=== PATIENT | male | born 1930 | race Caucasian/White ===

== ENCOUNTER 2017-03-13 06:15 | Day surgery (SDC) | payer MEDICARE ==
[~2017-03-13] VITALS: Ht 172.7 cm; Wt 85.7 kg
[~2017-03-13 06:15] MED LIST: ASPI81 PO; FISH1000 PO; OMEP20CA5 PO; PRIN10TA PO
[2017-03-13] MEDS ORDERED: IOHEXOL 350 MG/ML 100 ML BTL (for Cath Lab) OTHER ONE (06:16)
[2017-03-13] MEDS ORDERED: SODIUM CHLOR 0.9% 1000 ML INJ 400 ML IV ONE (06:45)
[2017-03-13] MEDS ORDERED: ALBU0.08 NEB (06:58)
[2017-03-13] MEDS ORDERED: OMEP20TA93 PO (06:58)
[2017-03-13] MEDS ORDERED: LISI-515 PO (06:58)
[2017-03-13] MEDS ORDERED: IPRA0.02 NEB (06:58)
[2017-03-13] MEDS ORDERED: KETO2CRE TOPICAL (06:58)
[2017-03-13] MEDS ORDERED: APIX2.5T PO (06:58)
[2017-03-13] MEDS ORDERED: PRIM50TA5 PO (06:58)
[2017-03-13] MEDS ORDERED: TRIAM.1%T TOPICAL (06:58)
[2017-03-13 06:59] VITALS: BP 136/91; PULSE 68; RESP 18; TEMP 98.2; O2SAT 97
[2017-03-13] MEDS ORDERED: HEPARIN-NS/PF INJ 1,000 ML ONE ×2 (07:35→08:10)
[2017-03-13] MEDS ORDERED: MIDAZOLAM HCL 5 MG/5 ML VIAL ONE ×2 (07:35→09:10)
[2017-03-13] MEDS ORDERED: HEPARIN SODIUM - IV 10,000 UNITS/10 ML VIAL ONE (08:51)
[2017-03-13] MEDS ORDERED: ADENOSINE IV SOLN 3 MG/ML 2 ML VIAL ONE (09:18)
[2017-03-13] MEDS ORDERED: NITROGLYCERIN INJ 10 ML ONE (09:51)
[2017-03-13] MEDS ORDERED: CLOPIDOGREL 300 MG TAB ONE (09:52)
[2017-03-13] MEDS ORDERED: SODIUM CHLOR 0.9% 1000 ML INJ 1,000 ML IV SCH (09:57)
[2017-03-13] MEDS ORDERED: ATROPINE SULFATE 1 MG/ML VIAL IV PUSH PRN (10:00)
[2017-03-13] MEDS ORDERED: ONDANSETRON HCL 4 MG/2 ML VIAL IV PUSH PRN (10:00)
[2017-03-13] MEDS ORDERED: oxyCODONE/ACETAMINOPHEN 10 MG/325 MG TAB PO PRN (10:00)
[2017-03-13] MEDS ORDERED: LIDOCAINE 2% JELLY 30 ML TUBE TOP PRN (10:00)
[2017-03-13] MEDS ORDERED: oxyCODONE/ACETAMINOPHEN 5 MG/325 MG TAB PO PRN (10:00)
[2017-03-13] MEDS ORDERED: LIDOCAINE HCL 1% 50 ML VIAL INFIL PRN (10:00)
[2017-03-13] MEDS ORDERED: ACETAMINOPHEN 325 MG TAB PO PRN (10:00)
[2017-03-13] MEDS ORDERED: CLOPIDOGREL 300 MG TAB PO ONE (10:00)
[2017-03-13] MEDS ORDERED: SODIUM CHLOR 0.9% 250 ML INJ 250 ML IV PRN (10:00)
[2017-03-13] MEDS ORDERED: METOCLOPRAMIDE HCL 10 MG/2 ML VIAL IV PUSH PRN (10:00)
[2017-03-13] MEDS ORDERED: LORazepam 2 MG/ML VIAL IV PUSH PRN (10:00)
[2017-03-13] MEDS ORDERED: MISC INFORMATION XX ONE (10:00)
[2017-03-13] MEDS ORDERED: ASPI-516 CHEW (10:01)
--- NOTE | 2017-03-13 10:07 | CATHPROC ---
[facility] HIS Report Study Information Study Number Admission Scheduled Start Study Start [id number] Mar 13 2017 6:15AM 03/13/2017 Mar 13 2017 7:56AM [place] [facility] Cardiac Catheterization Admit Source Facility Department Other [facility] - Industrial Real Estate Agent Physician and Clinical Staff Initial John Cid [employer] Wind Operations Manager Margarita Birch,RN Recorder Tila Fischer,RT(R) (BS) Scrub Hermes Her,RT(R) Procedures Performed Procedure Location (Site) Vessel Name Angiogram (manual) AO Arch (A1) Aorta LAMINATOR PRINTED CIRCUIT BOARDS Tib, Post (Left) Popliteal Wire insertion Radial (right) Radial Art. Equipment Time Local Hazmat Driver Description Size Mfg Part Number Used/Scraped TRANSDUCER, TRExRo TechnologiesAVE [id number] 08:09 KILPATRICK RUIZ * Used W/STOCKCOCK *[id number] DBP- CARDIOVASCULAR CATHETER, STEALTH SOLID 09:18 [id number] Used Aplica INC. 1.5MM 30 GRIT *[id number] CARDIOVASCULAR VPR-[id number] 09:15 WIRE, FIRM (VIPER) 335 Used SYSTEMS INC. *[id number] INTRODUCER SET, 09:05 [employer]OOK INC. FR 5 [id number] *[id number] Used MICROPUNCTURE, STIFFENED MPA-2 INFINITI 125CM [id number] CATHETER *[id number] *[id number] BALLOON, ADMIRAL IN.PACT 6 X [id number] 09:42 [employer]EC [employer] 130CM Used 150 130CM *[id number] BALLOON, AMPHIRION DEEP 4 X [id number] 09:25 [employer] 150CM Used 120 150CM *[id number] BALLOON, PACIFIC EXTREME 5 X [id number] 09:41 [employer] 130CM Used 150 130CM *[id number] CATHETER, FR5 TRAILBLAZER [id number] 09:13 [employer] 135CM Used .035 *[id number] 08:09 MALLINCKRODT SYRINGE, ANGIOMAT 150ML 150ML [id number] Used WIRE, AMPLATZ SUPER STIFF 08:48 [facility] .035 32291 *[id number] Used STRT [id number] 09:06 LemonStand. DRAPE, IOBAN 2 [id number] 26cm x 20cm Used *[id number] [id number] 08:09 [employer]. PACK, CCL CUSTOM * Used *[id number] 08:09 [employer]. SUPPORT, ARTERIAL ADULT 76773 *0748038 Used [id number] 08:09 MEDLINE PACER PEN, SKIN DUAL W/ RULER * Used *6999732 BAND, RADIAL COMPRESSION TR [id number] 09:57 [employer] 29CM Used LARGE 29 *[id number] BAND, RADIAL COMPRESSION TR [id number] 09:56 [employer] 24CM Used SHORT 24 *[id number] SHEATH, FR6 RADIAL PRELUDE 08:09 [employer] FR 6 [id number] Used EASE 11CM [id number]- 09:41 [employer] SHEATH, FR6.5 PRELUDE 11CM FR 6.5 038ACT Used *[id number] 08:09 [employer]Duck WIRE, EXCHANGE 260CM 3MMJ 260CM Used *9148613 [id number] 08:09 NAMIC MANIFOLD, 4 PORT * Used *1731713 [id number] 08:09 NAMIC TUBING, HIGH PRESSURE 48" 48" Used *6099654 [id number] 08:38 NAMIC TUBING, HIGH PRESSURE 48" 48" Used *7681908 [id number] 08:38 NAMIC TUBING, HIGH PRESSURE 48" 48" Used *3832377 [id number] 08:38 NAMIC TUBING, HIGH PRESSURE 48" 48" Used *6609210 08:09 [employer]COMED OMNIPAQUE, 350 MG, 150ML 150ML [id number] Used [id number] 08:09 [place] [employer] BLANKET,WARM AIR CCL * Used *[id number] [id number] 08:09 [employer] SHEATH, FR5 TERUMO (10CM) FR 5 Used *4786909 SHEATH, FR6 PINNACLE [id number] 09:07 [employer]/JULIETA FR 6 Used DESTINATION 45CM *[id number] WIRE, ANGLE GLIDE STIFF .035 [id number] 08:09 [employer]/JULIETA 260CM Used 260CM *[id number] Equipment Model, Serial, Lot Number and Expiration Data Description Model Number Serial Number Lot Number Expiration Date CATHETER, STEALTH SOLID 1.5MM 431120 12-21-2018 30 GRIT INTRODUCER SET, [id number] 02-06-2020 MICROPUNCTURE, STIFFENED WIRE, AMPLATZ SUPER STIFF STRT [id number] 09-18-2019 WIRE, FIRM (VIPER) 335 [id number] 11-20-2018 History: Allergies Allergy Reaction No Known Allergies Isczkzb-Eoa-Wlf Reductase Inhibitor naproxen ezetimibe History: Risk Factors Family History of Hypertension Dyslipidemia Previous [place] Previous Heart Failure Premature CAD Yes Yes No No Yes Prior Valve Prior PCI Prior CABG Surgery No No No Cerebrovascular Peripheral Artery Chronic Lung On Dialysis Diabetes Disease Disease Disease No No Yes Yes Yes History: Other Current Smoker Method Quit Packs a Day Years Used Pack Years No Cigarettes 22 Years Ago 4 54 216 Labs Hgb (g/dl) Hct (%) WBC (l/cumm) Platelets (thousands) 11.60-17.00 35.00-51.00 4.00-11.00 150.00-450.00 15.3 44.9 7.1 233 Glucose (mg/dl) BUN (mg/dl) Creatinine (mg/dl) BUN:Creatinine (1:x) 74.00-106.00 7.00-18.00 0.50-1.30 10.00-20.00 109 13 1.2 10.8 Na (meq/l) K (meq/l) 136.00-145.00 3.50-5.10 139 4.7 INR (PTT:PT) 0.90-1.10 1 CPK-MB (ng/ML) 0.50-3.60 Not Drawn Medication Medication Total Dose (Bolus/Oral) Medication Total Dosage/Unit 1% XYLOCAINE 21 mL ADENOSINE 840 mcg FENTANYL 125 mcg HEPARIN 9000 units NTG (IC) 1000 mcg PLAVIX 600 mg VERSED 6 mg Medications (Bolus/Oral) Medication Time Given Dosage/Unit Administered By Reason VERSED 03/13/2017 8:33:48 AM 2 mg Margarita Birch 2 mg VERSED given in lab by Margarita Birch RN in Left Antecubital via Peripheral IV. 1% XYLOCAINE 03/13/2017 8:34:01 AM 1 mL John Pizarro 1 mL 1% XYLOCAINE given in lab by John Pizarro in Right Radial via Subcutaneous. FENTANYL 03/13/2017 8:34:58 AM 50 mcg Margarita Birch 50 mcg FENTANYL given in lab by Margarita Birch, BISI in Left Antecubital via Peripheral IV. HEPARIN 03/13/2017 8:35:24 AM 3000 units Margarita Birch 3000 units HEPARIN given in lab by Margarita Birch RN in Left Antecubital via Peripheral IV. NTG (IC) 03/13/2017 8:35:43 AM 200 mcg John Pizarro 200 mcg NTG (IC) given in lab by John Pizarro in Right Radial via Intra-arterial. VERSED 03/13/2017 8:56:27 AM 2 mg Margarita Birch 2 mg VERSED given in lab by Margarita Birch RN in Left Antecubital via Peripheral IV. FENTANYL 03/13/2017 8:57:39 AM 50 mcg Margarita Birch 50 mcg FENTANYL given in lab by Margarita Birch RN in Left Antecubital via Peripheral IV. 1% XYLOCAINE 03/13/2017 9:06:44 AM 20 mL John Pizarro 20 mL 1% XYLOCAINE given in lab by John Pizarro in Left Groin via Subcutaneous. VERSED 03/13/2017 9:12:09 AM 2 mg Margarita Birch 2 mg VERSED given in lab by Margarita Birch RN in Left Antecubital via Peripheral IV. FENTANYL 03/13/2017 9:13:15 AM 25 mcg Margarita Birch 25 mcg FENTANYL given in lab by Margarita Birch RN in Left Antecubital via Peripheral IV. HEPARIN 03/13/2017 9:14:55 AM 4000 units Margarita Birch 4000 units HEPARIN given in lab by Margarita Birch RN in Left Antecubital via Peripheral IV. HEPARIN 03/13/2017 9:26:11 AM 2000 units Margarita Birch 2000 units HEPARIN given in lab by Margarita Birch RN in Left Antecubital via Peripheral IV. ADENOSINE 03/13/2017 9:29:37 AM 180 mcg Hermes Her 180 mcg ADENOSINE given in lab by Hermes Her, RT(R) in Left Groin via Intra-arterial. NTG (IC) 03/13/2017 9:30:39 AM 200 mcg Hermes Her 200 mcg NTG (IC) given in lab by Hermes Her RT(R) in Left Groin via Intra-arterial. ADENOSINE 03/13/2017 9:38:07 AM 180 mcg Hermes Her 180 mcg ADENOSINE given in lab by Herems Her RT(R) in Left Groin via Intra-arterial. NTG (IC) 03/13/2017 9:38:11 AM 200 mcg Hermes Her 200 mcg NTG (IC) given in lab by Hermes Her, RT(R) in Left Groin via Intra-arterial. ADENOSINE 03/13/2017 9:43:17 AM 180 mcg John Pizarro 180 mcg ADENOSINE given in lab by John Pizarro in Left Groin via Intra-arterial. NTG (IC) 03/13/2017 9:43:25 AM 200 mcg John Pizarro 200 mcg NTG (IC) given in lab by John Pizarro in Left Groin via Intra-arterial. ADENOSINE 03/13/2017 9:49:29 AM 300 mcg John Pizarro 300 mcg ADENOSINE given in lab by John Pizarro in Left Groin via Intra-arterial. NTG (IC) 03/13/2017 9:50:31 AM 200 mcg John Pizarro 200 mcg NTG (IC) given in lab by John Pizarro in Left Groin via Intra-arterial. 03/13/2017 10:05:25 PLAVIX 600 mg Margarita Birch AM 600 mg PLAVIX given in lab by Margarita Birch RN via Oral. Medication (Drip) Medication Time Given Dosage/Unit Concentration/Unit Diluent (ml) Solution IV Solutions 03/13/2017 8:04:37 AM 0 mL (IV) 500 NaCl .9 Patient arrived on IV Solutions in Left Antecubital via Peripheral IV. Pump/Drip Flow = 200 ml/hr usi ng NaCl .9. Initial Case Assessment Cardiovascular HR Rhythm NIBP 73 paced 172/82 Edema Present Skin color Skin None Normal Warm Dry Circulatory - Right Pulses Dorsalis Pedis Posterior Tibial Femoral 0 d 2 Scale (0,1,2,3,4,d) Circulatory - Left Pulses Dorsalis Pedis Posterior Tibial Femoral 0 d 2 Scale (0,1,2,3,4,d) Circulatory - Lower Extremities Color Lower Right Color Lower Left Normal Normal Neurological State Oriented to time-place- Alert Moves all extremities person Respiration - General Respiration Rate SpO2 (%) (B/min) 17 96 Chronological Log Time Study Chronological Log 7:55:58 Patient arrived via Bed. 7:55:59 Patient Name, D.O.B, / Armband Verified By R.N. Vitals capture started with the following parameters, Patient=Adult, Interval=5 min, Initial Zfwxnkfk=951 mmHg, 8:02:15 Deflation Rate=5 mmHg, Cuff placed on Right Arm 8:03:20 ROXY=233/82 mmhg, SpO2=96.0 %, Pain=0, Dustin=10, Logan=2 8:04:24 Consent signed by the physician and the patient and verified by the Industrial Real Estate Agent staff. 8:04:25 Pre-op and post- op instructions given; patient acknowledges understanding of instructions. 8:04:25 Verbal Stimulation=2 Physical Stimulation=2 Airway=2 Respiration=2 TOTAL=8. (0=absent, 1=cardenas ited, 2=present) 8:04:27 Presedation assessment performed by Industrial Real Estate Agent RN. 8:04:28 Allens test performed on the right radial and ulnar artery. 8:04:31 Patient has been NPO for More than 6Hrs. 8:04:32 Skin Breakdown none per pt 8:04:32 Patient Warmer Placed on the Table. 8:04:35 Gary Prominences Protected 8:04:37 A # 20 IV was noted in the Antecubital (left). Grade = 0 8:04:37 Patient arrived on IV Solutions in Left Antecubital via Peripheral IV. Pump/Drip Flow = 200 ml/hr using NaCl .9. 8:04:38 History and physical on the chart or being dictated. Assessment: Initial Case, HR=73 BPM, Rhythm=paced, PPQP=183/82 mmhg, Edema=None, Color=Normal, S kin = Warm, Dry Right Pulses: Jason Ped=0, Post Tib=d, Femoral=2 Left Pulses: Jason Ped=0, Post Tib=d, Femoral=2 8:04:43 Lower Right Extremities: Color=Normal Lower Left Extremities: Color=Normal Neurological: State=Alert, Ox3, [place] Respiration: Resp=17 B/min, SpO2=96 % 8:07:32 Reference ECG taken 8:07:58 HR=68 bpm, TDQP=830/84 mmhg, SpO2=97.0 %, Resp=10 B/min, Pain=0, Dustin=10, Logan=2 8:12:53 HR=72 bpm, GRSZ=831/87 mmhg, SpO2=97.0 %, Resp=7 B/min, Pain=0, Dustin=10, Logan=2 8:14:28 Right Radial and groin(s) prepped with 2% chlorhexidine, and draped after a 3 min. waiting t gopi. 8:17:56 HR=83 bpm, UOLF=554/89 mmhg, SpO2=99.0 %, Resp=12 B/min, Pain=0, Dustin=10, Logan=2 8:22:23 MD paged 8:22:58 HR=68 bpm, UANG=407/89 mmhg, SpO2=99.0 %, Resp=11 B/min, Pain=0, Dustin=10, Logan=2 8:25:08 MD responded 8:26:46 Pressure channel 1 zeroed. 8:27:57 HR=71 bpm, GOCI=032/94 mmhg, SpO2=98.0 %, Resp=12 B/min, Pain=0, Dustin=10, Logan=2 Time Out. Correct patient, correct procedure, correct physician, power injector not loaded with contrast with surgical 8:33:32 team present. Time Out Concurred by MD and individual staff in procedure. 8:33:35 HR=75 bpm, HCPX=117/93 mmhg, SpO2=98.0 %, Resp=8 B/min, Pain=0, Dustin=10, Logan=2 8:33:48 2 mg VERSED given in lab by Margarita Birch RN in Left Antecubital via Peripheral IV. 8:33:53 Case Start 8:34:01 1 mL 1% XYLOCAINE given in lab by John Pizarro in Right Radial via Subcutaneous. 8:34:52 Access site was right Radial Artery. 8:34:58 50 mcg FENTANYL given in lab by Margarita Birch RN in Left Antecubital via Peripheral IV. A SHEATH, FR6 RADIAL PRELUDE EASE 11CM FR 6 was advanced into the Radial (right) using the Harveyu medhat 8:35:04 technique. 8:35:24 3000 units HEPARIN given in lab by Margarita Birch RN in Left Antecubital via Peripheral IV . 8:35:43 200 mcg NTG (IC) given in lab by John Pizarro in Right Radial via Intra-arterial. 8:36:05 In the Radial (right) the SHEATH, FR6 RADIAL PRELUDE EASE 11CM FR [address] by John Pizarro. A PIGTAIL ANG. INFINITI CATHETER FR 5 was advanced over a wire. OMNIPAQUE, 350 MG, 150ML 150ML w as used 8:36:53 for injections. 8:37:32 Wire removed 8:37:34 A WIRE, ANGLE GLIDE STIFF .035 260CM 260CM was inserted via Radial (right). 8:37:59 HR=72 bpm, WFSG=957/79 mmhg, SpO2=88.0 %, Resp=19 B/min, Pain=0, Dustin=10, Logan=2 After removing the current catheter a MPA-2 INFINITI 125CM CATHETER FR 5 was advanced over a WIR E, EXCHANGE 8:42:11 260CM 3MMJ 260CM. 8:42:54 HR=71 bpm, QNFC=317/80 mmhg, SpO2=94.0 %, Resp=16 B/min, Pain=0, Dustin=10, Logan=2 8:43:45 The previous wire was exchanged for a WIRE, ANGLE GLIDE STIFF .035 260CM 260CM. 8:47:55 HR=72 bpm, VVSH=807/83 mmhg, SpO2=95.0 %, Resp=17 B/min 8:48:15 The previous wire was exchanged for a WIRE, AMPLATZ SUPER STIFF STRT .035. 8:53:31 HR=70 bpm, WSBX=982/87 mmhg, SpO2=96.0 %, Resp=19 B/min, Pain=0, Dustin=10, Logan=2 8:55:49 AO Arch (A1) angiogram, manually injected. Injections continued down legs. 8:56:18 A WIRE, AMPLATZ SUPER STIFF STRT .035 was inserted via Radial (right). 8:56:27 2 mg VERSED given in lab by Margarita Birch, BISI in Left Antecubital via Peripheral IV. 8:57:39 50 mcg FENTANYL given in lab by Margarita Birch, BISI in Left Antecubital via Peripheral IV. 8:57:59 HR=75 bpm, JNQS=615/79 mmhg, SpO2=95.0 %, Resp=17 B/min, Pain=0, Dustin=10, Logan=2 8:58:55 Wire removed 9:02:57 Catheter was removed 9:02:58 HR=75 bpm, QNOS=632/85 mmhg, SpO2=94.0 %, Resp=19 B/min, Pain=0, Dustin=10, Logan=2 9:06:44 20 mL 1% XYLOCAINE given in lab by John Pizarro in Left Groin via Subcutaneous. 9:07:28 Access site was Left Femoral Artery. A INTRODUCER SET, MICROPUNCTURE, STIFFENED FR 5 was advanced into the Fem Art (left) using the P ercutaneous 9:07:34 technique. A SHEATH, FR6 PINNACLE DESTINATION 45CM FR 6 was exchanged in the Fem Art (left). This was neces stevan in order 9:07:50 to accomodate a larger catheter. 9:08:01 HR=66 bpm, WKXF=142/78 mmhg, SpO2=95.0 %, Resp=17 B/min, Pain=0, Dustin=10, Logan=2 9:12:09 2 mg VERSED given in lab by Margarita Birch, BISI in Left Antecubital via Peripheral IV. A CATHETER, FR5 TRAILBLAZER .035 135CM was advanced over a wire. OMNIPAQUE, 350 MG, 150ML 150ML was 9:12:53 used for injections. 9:13:00 HR=69 bpm, BNZV=574/75 mmhg, SpO2=96.0 %, Resp=18 B/min, Pain=0, Dustin=10, Logan=2 9:13:15 25 mcg FENTANYL given in lab by Margarita Birch, BISI in Left Antecubital via Peripheral IV. 9:14:55 4000 units HEPARIN given in lab by Margarita Birch, BISI in Left Antecubital via Peripheral IV . 9:18:01 HR=68 bpm, EQIU=317/73 mmhg, SpO2=95.0 %, Resp=17 B/min, Pain=0, Dustin=10, Logan=2 9:21:17 Activated Clotting Time Drawn 9:22:58 HR=71 bpm, FSBW=385/82 mmhg, SpO2=95.0 %, Resp=16 B/min, Pain=0, Dustin=10, Logan=2 A BALLOON, AMPHIRION DEEP 4 X 120 150CM 150CM was inserted over WIRE, FIRM (VIPER) 335 via the F em Art 9:24:38 (left). 9:25:34 ACT (Normal Range 90-180) = 214 9:26:11 2000 units HEPARIN given in lab by Margarita Birch RN in Left Antecubital via Peripheral IV . 9:26:26 In the Tib, Post (Left) a BALLOON, AMPHIRION DEEP 4 X 120 150CM 150CM was inflated to 4 atms for 60 seconds. 9:27:28 In the Tib, Post (Left) a BALLOON, AMPHIRION DEEP 4 X 120 150CM 150CM was inflated to 4 atms for 60 seconds. 9:28:46 HR=66 bpm, JCWR=470/83 mmhg, SpO2=97.0 %, Resp=17 B/min, Pain=0, Dustin=10, Logan=2 9:29:08 Balloon Removed 9:29:37 180 mcg ADENOSINE given in lab by Hermes Her RT(R) in Left Groin via Intra-arterial. 9:30:39 200 mcg NTG (IC) given in lab by Hermes Her RT(R) in Left Groin via Intra-arterial. 9:33:02 HR=65 bpm, WGWV=436/76 mmhg, SpO2=95.0 %, Resp=18 B/min, Pain=0, Dustin=10, Logan=2 9:35:32 Activated Clotting Time Drawn 9:36:24 An CATHETER, Infrastruct SecurityALTH SOLID 1.5MM 30 GRIT catheter was inserted into the Fem Art (left). 9:36:48 CSI in progress 9:37:59 HR=69 bpm, QKPH=325/82 mmhg, SpO2=97.0 %, Resp=17 B/min, Pain=0, Dustin=10, Logan=2 9:38:07 180 mcg ADENOSINE given in lab by Hermes eHr RT(R) in Left Groin via Intra-arterial. 9:38:11 200 mcg NTG (IC) given in lab by Hermes Her RT(R) in Left Groin via Intra-arterial. 9:38:23 CSI in progress 9:39:15 Catheter was removed w/o difficulty A BALLOON, PACIFIC EXTREME 5 X 150 130CM 130CM was inserted over WIRE, REBECCA (VIPER) 335 via the Fem Art 9:40:08 (left). 9:40:32 ACT (Normal Range 90-180) = 272 9:40:45 In the Tib, Post (Left) a BALLOON, PACIFIC EXTREME 5 X 150 130CM 130CM was inflated to 6 verónica s for 40 seconds. 9:41:13 In the Tib, Post (Left) a BALLOON, PACIFIC EXTREME 5 X 150 130CM 130CM was inflated to 6 verónica s for 40 seconds. 9:41:50 Balloon Removed 9:43:00 HR=69 bpm, UMYN=197/90 mmhg, SpO2=98.0 %, Resp=17 B/min, Pain=0, Dustin=10, Logan=2 9:43:17 180 mcg ADENOSINE given in lab by John Pizarro in Left Groin via Intra-arterial. 9:43:25 200 mcg NTG (IC) given in lab by John Pizarro in Left Groin via Intra-arterial. A BALLOON, ADMIRAL IN.PACT 6 X 150 130CM 130CM was inserted over WIRE, FIRM (VIPER) 335 via the Fem Art 9:43:57 (left). 9:44:27 In the Tib, Post (Left) a BALLOON, ADMIRAL IN.PACT 6 X 150 130CM 130CM was inflated to 6 verónica s for 180 seconds. 9:48:04 HR=66 bpm, FGZU=087/87 mmhg, SpO2=98.0 %, Resp=17 B/min, Pain=0, Dustin=10, Logan=2 9:48:09 Balloon Removed 9:49:29 300 mcg ADENOSINE given in lab by John Pizarro in Left Groin via Intra-arterial. 9:50:31 200 mcg NTG (IC) given in lab by John Pizarro in Left Groin via Intra-arterial. A SHEATH, FR6.5 PRELUDE 11CM FR 6.5 was exchanged in the Tib, Post (Left). This was necessary i n order to achieve 9:52:33 vascular hemostasis. 9:53:03 HR=69 bpm, XNAV=165/80 mmhg, Resp=17 B/min, Pain=0, Dustin=10, Logan=2 9:55:26 Case End 9:55:32 Catheter(s) removed without difficulty 9:55:35 In the Fem Art (left) the SHEATH, FR6.5 PRELUDE 11CM FR 6.[address] by Hermes Mancilla RT(R). Radial Compression Device Used. 15 mLs of air placed in BAND, RADIAL COMPRESSION TR SHORT 24 24 CM. Affected 9:55:48 hand ~O2 SATURATION~ % O2 saturation. 9:56:03 No case complications noted. 9:56:07 Bedside Report will be given. 9:58:00 HR=76 bpm, WVVF=920/86 mmhg, SpO2=98.0 %, Resp=17 B/min, Pain=0, Dustin=10, Logan=2 9:58:36 Sterile dressing applied to site 9:59:52 DOCU called. Spoke to Graham. Advised a-line needed. 10:03:03 HR=65 bpm, OQHI=355/85 mmhg, SpO2=99.0 %, Resp=18 B/min, Pain=0, Dustin=10, Logan=2 10:04:30 Vitals capture stopped. 10:05:25 600 mg PLAVIX given in lab by Margarita Birch RN via Oral. 10:05:34 PACU called. Spoke to 10:07:39 Patient moved to [facility] End Study - Contrast Media Used In Study Contrast Total Opened (mL) Total Used (mL) Total Wasted (mL) Omnipaque 175 175 0 End Study - Maximum Contrast Load Max Contrast Load (mL) 357.0 End Study - Radiation Exposure Fluoro Time (minutes) 22.1 End Study - Patient Disposition Complications Transferred To Interventional Outcome No Industrial Real Estate Agent Holding successful
--- NOTE | 2017-03-13 10:42 | MA ---
cc: RAGHUANALISA DATE: 03/13/2017 PROCEDURE PERFORMED 1. Fluoroscopy with interpretation. 2. Descending aortography. 3. Bilateral lower extremity peripheral angiography with first, second and third order visualization and interpretation. 4. Orbital rotational atherectomy and balloon angioplasty with drug-coated balloon of the left superficial femoral artery. 5. Balloon angioplasty of the left peroneal artery. METHOD The risks, benefits and alternatives were discussed with the patient. The patient understood and consented to the procedure. The patient was brought into the catheterization lab and was placed on the catheterization table. The right wrist and bilateral groins were prepped and draped in a sterile fashion. The right wrist was anesthetized with 2% lidocaine. The right radial artery was cannulated and a 6 Ukrainian, 7 cm sheath was placed without difficulty. DESCENDING AORTOGRAPHY An angled pigtail catheter was advanced through the right radial sheath and navigated to the descending aorta. Aortography was performed in an anterior-posterior view using a 20 cc contrast injection with good opacification. The descending aorta had mild to moderate atherosclerotic disease present. There was an aortobifemoral endograft present which appears to be widely patent. RIGHT LOWER EXTREMITY PERIPHERAL ANGIOGRAPHY A long multipurpose catheter was selectively engaged in the right leg of the endograft from the radial approach. The endograft is widely patent. The right common femoral is widely patent. The right profunda artery is widely patent. The right superficial femoral is occluded proximally. There is severe diffuse disease in the distal segment. The popliteal artery has mild to moderate plaque present. The tibial and peroneal vessels are occluded. The posterior tibial has mild to moderate diffuse disease, although the proximal segment is not well-visualized and collateralizes the foot. The left leg of the endograft is widely patent. The left external iliac artery and left common femoral artery have mild to moderate calcific plaque. The left profunda artery is widely patent. The left superficial femoral has 75-80% stenosis in the mid to distal segment. The peroneal vessel has a 90% stenosis proximally. The anterior tibial and posterior tibial arteries are occluded and collateralized distally. PERCUTANEOUS INTERVENTION A 6 Ukrainian sheath was placed antegrade in the left common femoral artery. A Glidewire was navigated down the distal popliteal artery. Heparin was administered throughout the entire procedure to maintain appropriate anticoagulation. A 0.035 inch Trailblazer catheter was advanced down to the distal peroneal vessel. The wire was removed. A 0.014 inch, 335 cm Brazen Careerister wire was then navigated down to the distal peroneal vessel. A 4.0 x 100 mm Medtronic balloon was then deployed on two sequential inflations through the entire peroneal vessel. Repeat angiography showed that it was widely patent with mild residual disease of 1.5 mm. A CSI atherectomy catheter was then advanced into the superficial femoral artery. In the mid to distal segmental orbital rotational atherectomy was performed on three sequential passes. Intra-arterial adenosine and nitroglycerin were administered. A 5.0 x 150 mm Medtronic balloon was then deployed on two sequential inflations in the superficial femoral artery mid to distal segment. A 6.0 x 150 mm Medtronic drug-coated balloon was then deployed in the mid superficial femoral artery. Repeat angiography showed no residual stenosis and BETSY-III flow. The sheath was then exchanged for a short sheath sewn into place to be removed with manual hemostasis. CONCLUSIONS 1. Widely patent aortobifemoral bypass endograft. 2. Chronically occluded right superficial femoral artery. 3. Severe left superficial femoral artery stenosis. 4. Severe bilateral infrapopliteal disease. PLAN Hopefully this will translate well with symptomatic improvement. The patient is on Eliquis. No stent was placed. Will continue with Eliquis and add aspirin. Will allow for recovery with hopefully no post-procedural events or bleeding. We may plan for potential staged intervention of the right lower extremity from a retrograde popliteal approach versus consideration for fem-pop bypass. Will discuss both options with the patient. MD MARIBELL Shin/DES /10:09 AM /10:19 AM KRANTHI
[2017-03-13] MEDS ORDERED: MORPHINE SULFATE 2 MG/ML INJ IV PUSH PRN (10:45)
[2017-03-13] MEDS ORDERED: BACITRACIN OINT 0.9 GM PKT TOP ONE (11:00)
--- NOTE | 2017-03-13 18:44 | EKG ---
Date Performed: 03/13/2017 Time Performed: 07:06:54 PTAGE: 86 years EKG: Atrioventricular pacing Ventricular premature complex Abnormal ECG PREVIOUS TRACING : 11/29/2009 11.51 No obvious change from the prior tracing. DOCTOR: Saeed Phillips Interpretating Date/Time 03/13/2017 18:43:21
[2017-03-14] MEDS ORDERED: CLOPIDOGREL 75 MG TAB PO SCH (09:00)
== END 2017-03-13 18:25 | disposition home or self-care (01) ==
LOC: HDOC 06:15 → HDIC 06:16 → HDOC 18:25
PROVIDERS: ATTEND Internal Medicine
DX: I70.202 Unspecified atherosclerosis of native arteries of extremities, left leg (principal); I77.1 Stricture of artery; Z79.01 Long term (current) use of anticoagulants
CPT/HCPCS: 37225; 37228; 75625; 75716; 85002; 85347; 93005; 99152; 99153; C1714; C1725; C1751; C1769; C1893; C2623; J0153; J1644; J2250; J3010; J7030; Q9967